=== PATIENT | male | born 1970 | race Caucasian/White ===

== ENCOUNTER 2017-05-14 20:44 | Emergency (ER) | payer SELFPAY ==
[~2017-05-14] VITALS: Ht 165.1 cm; Wt 83.7 kg
[~2017-05-14 20:44] MED LIST: VALT1TAB26 PO; Z.0.NO CURRENT MEDS
[2017-05-14 21:26] VITALS: BP 120/68; PULSE 79; RESP 18; TEMP 100.2; O2SAT 98
== END 2017-05-14 22:37 | disposition left against medical advice (07) ==
LOC: PHED 20:44
DX: Z53.21 Procedure and treatment not carried out due to patient leaving prior to being seen by health care provider (principal)
CPT/HCPCS: 99281